=== PATIENT | female | born 1960 | race Caucasian/White ===

== ENCOUNTER 2017-04-15 14:49 | Emergency (ER) | payer OTHER ==
[~2017-04-15] VITALS: Ht 170.2 cm; Wt 58.5 kg
[2017-04-15] MEDS ORDERED: LEVOTHYROXINE 75 MCG TABLET (15:14)
[2017-04-15] MEDS ORDERED: PREMPRO (15:14)
[2017-04-15] MEDS ORDERED: ONDANSETRON 4 MG/2 ML VIAL IV ONE (15:15)
[2017-04-15] MEDS ORDERED: IV NORMAL SALINE 1000 ML BAG IV ONE (15:15)
[2017-04-15 15:36] LABS: BASOPHILS % (AUTO) 0.4 % (0.0-2.0); EOSINOPHILS % (AUTO) 0.5 % (0.0-7.0); HEMATOCRIT 43.9 % (31.2-41.9); HEMOGLOBIN 15.1 g/dL (10.9-14.3); LYMPHOCYTES # (AUTO) 1.7 K/uL (20.0-40.0); LYMPHOCYTES % (AUTO) 45.7 % (20.5-51.5); MEAN CORPUSCULAR HGB CONC 35 g/dL (32.3-35.6); MEAN CORPUSCULAR VOLUME 89.8 fL (75.5-95.3); MONOCYTES # (AUTO) 0.4 K/uL (2.0-10.0); MONOCYTES % (AUTO) 11.6 % (0.0-11.0); NEUTROPHILS # (AUTO) 1.5 K/uL (1.8-8.9); NEUTROPHILS % (AUTO) 41.8 % (38.5-71.5); PLATELET COUNT (AUTO) 128 K/uL (179-408); RED BLOOD CELL COUNT(AUTO) 4.88 MIL/uL (3.63-4.92); WHITE BLOOD COUNT (AUTO) 3.6 K/uL (3.8-11.8)
[2017-04-15] MEDS ORDERED: ONDANSETRON 4 MG/2 ML VIAL ONE (15:45)
[2017-04-15 15:51] LABS: CREATININE 0.8 mg/dL (0.6-1.3); POTASSIUM 4.4 mmol/L (3.5-5.1)
[2017-04-15 15:56] LABS: BILIRUBIN,DIRECT 0.1 mg/dL (0.0-0.2); BILIRUBIN,TOTAL 0.4 mg/dL (0.2-1.0); TOTAL PROTEIN, SERUM 7.3 g/dL (6.4-8.2)
[2017-04-15] MEDS ORDERED: KETOROLAC TROMETHAMINE 15 MG INJ IV ONE (16:00)
[2017-04-15] MEDS ORDERED: KETOROLAC TROMETHAMINE 30 MG INJ ONE (16:01)
--- NOTE | 2017-04-15 16:20 | NUR ---
Patient discharged to home in stable conditon. Written and verbal after care instructions given. Patient verbalizes understanding of instructions. PT WALKS IN STEADY GAIT, PT FEELS BETTER.
[2017-04-15 18:02] VITALS: BP 101/61
== END 2017-04-15 16:29 | disposition home or self-care (01) ==
LOC: ER 14:49
DX: R05 Cough (principal); B34.9 Viral infection, unspecified
CPT/HCPCS: 36415; 70030-TC; 85025; 85730; 93005; A4663; J1885; J2405; J7030

== ENCOUNTER 2023-11-03 08:26 | Emergency (ER) | payer OTHER ==
[~2023-11-03] VITALS: Ht 170.2 cm; Wt 61.7 kg
[~2023-11-03 08:26] MED LIST: LEVOTHYROXINE 75 MCG TABLET; PREMPRO
[2023-11-03] MEDS ORDERED: KETOROLAC TROMETHAMINE 60 MG INJ IM ONE (10:01)
[2023-11-03] MEDS ORDERED: DEXAMETHASONE SOD PHOSPHATE 4 MG INJ ONE (10:01)
[2023-11-03] MEDS: DEXAMETHASONE SOD PHOSPHATE 4 MG INJ IM ONE (10:15)
[2023-11-03] MEDS: KETOROLAC TROMETHAMINE 60 MG INJ IM ONE (10:19)
[2023-11-03 10:32] VITALS: BP 139/68; TEMP 98.2; O2SAT 97
== END 2023-11-03 10:33 | disposition home or self-care (01) ==
LOC: ER 08:26
DX: J02.9 Acute pharyngitis, unspecified (principal); H92.01 Otalgia, right ear; Z98.890 Other specified postprocedural states; Z79.899 Other long term (current) drug therapy; Z88.8 Allergy status to other drugs, medicaments and biological substances
CPT/HCPCS: 99285; 72125; 96372 ×2; J1100; J1885; A4606; A4663